=== PATIENT | female | born 1955 | race American Indian/Alaskan Native ===

== ENCOUNTER 2016-12-15 10:52 | Outpatient (CLI) | payer OTHER ==
--- NOTE | 2016-12-15 15:44 | Mammography Report ---
BILATERAL DIGITAL SCREENING MAMMOGRAM with CAD: 12/15/16 10:52:00 CLINICAL: Routine screening. COMPARISON:11/20/15 FINDINGS: The breasts are almost entirely fatty.Scattered bilateral benign calcifications. No mass, architectural distortion or suspicious calcifications. IMPRESSION: No mammographic evidence of malignancy. BI-RADS CATEGORY: 2 - - Benign RECOMMENDATION: Routine mammographic screening in one year. COMMENT: Patient follow-up letters are generated by our [employer] application.
== END 2016-12-15 10:53 | disposition home or self-care (01) ==
LOC: SPVWC 10:52
DX: Z12.31 Encounter for screening mammogram for malignant neoplasm of breast (principal)
CPT/HCPCS: 77067; G0202